=== PATIENT | female | born 1960 | race African-American/Black ===

== ENCOUNTER 2017-09-28 06:01 | Emergency (ER) | payer OTHER ==
[2017-09-28 06:05] VITALS: BP 145/67; PULSE 75; RESP 20; TEMP 98.7; O2SAT 100
[2017-09-28] MEDS ORDERED: ZITHTAB PO (07:09)
[2017-09-28] MEDS ORDERED: CORTISPORIN OTIC SUS EACH EAR (07:09)
--- NOTE | 2017-09-28 07:09 | PD ---
HPI Chief Complaint: ENT Complaint Time Seen by Provider: 06:59 Travel History International Travel<30 days: No Contact w/Intl Traveler<30days: No Traveled to known affect area: No History of Present Illness HPI 57-year-old female complains of right earache. Patient states that the symptoms started 3 days ago. Patient states that she had mild sore throat also. Patient states that she had fever several days ago. Patient denies any coughing congestion. Patient denies any nausea vomiting diarrhea. PFSH Past Medical History Asthma: Yes Cancer: No Cardiovascular Problems: No Diabetes: No Diminished Hearing: Yes (BILATERAL) Hepatitis: No Hiatal Hernia: No Respiratory: Yes Immunizations Current: Yes Thyroid Disease: No Tetanus Vaccination: < 5 Years Influenza Vaccination: Yes ?: Not Menopausal: Yes Past Surgical History Abdominal Surgery: No Cardiac Surgery: No Ear Surgery: No Endocrine Surgery: No Eye Surgery: No Genitourinary Surgery: No Hysterectomy: Yes (PARTIAL) Oral Surgery: No Thoracic Surgery: No Other Surgery: Yes (RIGHT LUMPECTOMY 1979) Social History Alcohol Use: No Tobacco Use: No Substance Use: No Allergies-Medications (Allergen,Severity, Reaction): Coded Allergies: penicillin G (Unverified Allergy, Mild, Hives, 09/28/17) Reported Meds & Prescriptions Reported Meds & Active Scripts Active No Active Prescriptions or Reported Medications Review of Systems General / Constitutional: No: Fever Eyes: No: Visual changes HENT: Positive: Earache, No: Headaches Cardiovascular: No: Chest Pain or Discomfort Respiratory: No: Shortness of Breath Gastrointestinal: No: Abdominal Pain Genitourinary: No: Dysuria Musculoskeletal: No: Pain Skin: No Rash Neurologic: No: Weakness Psychiatric: No: Depression Endocrine: No: Polydipsia Hematologic/Lymphatic: No: Easy Bruising Physical Exam Narrative GENERAL: Well-nourished, well-developed patient. SKIN: Focused skin assessment warm/dry. HEAD: Normocephalic. EYES: No scleral icterus. No injection or drainage. Right ear canal inflame with tenderness on palpation. TM is clear. Throat: Mild erythematous. NECK: Supple, trachea midline. No JVD. Patient has mild right anterior cervical Lymphadenopathy. CARDIOVASCULAR: Regular rate and rhythm without murmurs, gallops, or rubs. RESPIRATORY: Breath sounds equal bilaterally. No accessory muscle use. GASTROINTESTINAL: Abdomen soft, non-tender, nondistended. MUSCULOSKELETAL: No cyanosis, or edema. BACK: Nontender without obvious deformity. No CVA tenderness. Data Data Last Documented VS Vital Signs Date Time Temp Pulse Resp B/P (MAP) Pulse Ox O2 Delivery O2 Flow Rate FiO2 09/28/17 06:05 98.7 75 20 145/67 (93) 100 MDM Medical Decision Making Medical Screen Exam Complete: Yes Emergency Medical Condition: Yes Differential Diagnosis Differential diagnosis including otitis externa, otitis media, pharyngitis, lymphadenitis. Narrative Course 57-year-old female with right ear pain. Diagnosis Primary Impression: Right otitis externa Qualified Codes: H60.311 - Diffuse otitis externa, right ear Patient Instructions: General Instructions Additional Instructions: Take medications as directed. Tylenol or ibuprofen for pain. Follow-up with personal physician. Return if worse. Med/Other Pt SpecificInfo: Prescription(s) given Scripts [Cortisporin Otic Isabelle] No Conflict Check 4 DROP EACH EAR TID, #1 Prov: Gopal Grey MD 09/28/17 Azithromycin (Zithromax Z-Gaurang) 250 Mg Dspk 250 MG PO DIRECTED for Infection, #1 DSPK 0 Refills 500 MG (2 tabs) day 1, then 1 tab days 2-5. Prov: Gopal Grey MD 09/28/17 Disposition: 01 DISCHARGE HOME Condition: Stable Gopal Grey MD Sep 28, 2017 07:09
== END 2017-09-28 07:16 | disposition home or self-care (01) ==
LOC: PHED 06:01
DX: H60.311 Diffuse otitis externa, right ear (principal)
CPT/HCPCS: 99283